=== PATIENT | female | born 1985 | race Two or more races ===

== ENCOUNTER 2024-04-19 23:41 | Emergency (ER) | payer OTHER ==
[~2024-04-19] VITALS: Ht 167.6 cm; Wt 63.5 kg
[2024-04-20 00:01] VITALS: BP 125/84; O2SAT 99
[2024-04-20] MEDS ORDERED: INDERAL XL80 MG PO (00:02)
[2024-04-20] MEDS ORDERED: PRILOSEC OTC20 MG PO (00:03)
[2024-04-20] MEDS ORDERED: ALPRAZOLAM ODT1 MG PO (00:03)
[2024-04-20] MEDS ORDERED: FAMOtidine 10 MG/ML (4ML VIAL) IV PUSH STA (01:01)
[2024-04-20] MEDS ORDERED: 0.9 % SODIUM CHLORIDE 1,000 ML IV STA (01:01)
[2024-04-20 03:08] LABS: HEMATOCRIT 40.9 % (36.0-45.00); HEMOGLOBIN 13.7 g/dL (12.0-15.00); MEAN CELL VOLUME 85.5 fL (80.00-100.00); MEAN CORPUSCULAR HEMOGLOBIN 28.7 pg (27.00-32.0); MEAN CORPUSCULAR HGB CONC 33.5 g/dl (32.0-36.0); PLATELET COUNT 308 K/uL (150-450); RED BLOOD COUNT 4.79 M/uL (4.00-6.00); RED CELL DISTRIBUTION WIDTH 13.8 % (11.5-14.5)
[2024-04-20 03:34] LABS: INR 1.06; PROTHROMBIN TIME 11.5 SECONDS (9.0-11.5)
[2024-04-20 03:39] LABS: ALBUMIN 3.6 gm/dL (3.4-5.0); BILIRUBIN TOTAL 0.56 mg/dL (0.3-1.2); CALCIUM 9.7 mg/dL (8.5-10.1); CREATININE SERUM 0.85 mg/dL (0.55-1.02); GFR 74.07; POTASSIUM 4.95 mEq/L (3.5-5.1); TOTAL PROTEIN 7.6 gm/dL (6.4-8.2)
[2024-04-20] MEDS ORDERED: MECLIZINE HCL 25 MG TABLET PO STA (04:22)
== END 2024-04-20 04:42 | disposition home or self-care (01) ==
LOC: ER 23:41
DX: R55 Syncope and collapse (principal); F32.89 Other specified depressive episodes; I10 Essential (primary) hypertension